=== PATIENT | female | born 1955 | race African-American/Black ===

== ENCOUNTER 2018-03-22 15:06 | Outpatient (CLI) | payer BC | END 2018-03-22 15:07 | disposition home or self-care (01) | LOC: BICMAMMO 15:06 | PROVIDERS: ATTEND Internal Medicine Geriatric Medicine | DX: Z12.31 Encounter for screening mammogram for malignant neoplasm of breast (principal); R92.1 Mammographic calcification found on diagnostic imaging of breast | CPT/HCPCS: 77063; 77067 ==

== ENCOUNTER 2018-05-09 07:28 | Outpatient (CLI) | payer BC ==
[2018-05-09] MEDS ORDERED: Iopamidol 370 76% 100 ML VIAL ONE (09:00)
--- NOTE | 2018-05-09 12:52 | CT ---
CONTRAST ENHANCED CT OF THE SOFT TISSUE NECK: History: 62-year-old with history of swollen parotid region involving the left parotid gland. Technique: Contrast enhanced CT of the soft tissue neck performed. FINDINGS: Images demonstrate the thyroid gland to be unremarkable. No significant evidence of lymphadenopathy s een. The common and internal carotid artery is unremarkable. No definite evidence of pharyngeal mucosal masses or lesions seen. The right and left submandibular glands and parotid glands are unremarkable with no definite evidence of masses or lesions. The paranasal sinuses are well aerated in the visualized portions. IMPRESSION: Unremarkable contrast enhanced images of the soft tissue neck. POS: C
== END 2018-05-09 07:29 | disposition home or self-care (01) ==
LOC: SCSCT 07:28
PROVIDERS: ATTEND Internal Medicine Geriatric Medicine
DX: K11.8 Other diseases of salivary glands (principal)
CPT/HCPCS: 70491; 82565

== ENCOUNTER 2019-03-22 08:32 | Outpatient (CLI) | payer BC ==
--- NOTE | 2019-03-22 09:49 | MRI ---
MRI LEFT KNEE WITHOUT CONTRAST: HISTORY: Knee pain. M23.92, internal derangement. COMPARISON: None. FINDINGS: Medial meniscus: Intact. Lateral meniscus: Intact. ACL, PCL, MCL, and LCL: Intact. Extensor mechanism: Quadriceps tendon, patella, and patella tendon are intact. CARTILAGE: Patellofemoral compartment: Multifocal full-thickness cartilage fissuring of the patellar apex, supe rior pole, as well as medial patellar facet, with subcortical reactive marrow changes. There is also high-grade chondral loss of the medial patellar facet. Medial compartment: Intact. Lateral compartment: There are a few high-grade cartilage fissures and chondral delamination along t he posterior flexion zone and the posterior weightbearing surface of the lateral femoral condyle. Th ere is mild intrameniscal degeneration of the lateral meniscal body. Muscles: Muscle signal and bulk are normal. Soft tissue: Normal joint fluid. Small popliteus bursa effusion. IMPRESSION: 1. 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 2. No evidence of acute internal derangement. 3. Mild free edge fraying and intrameniscal degeneration of the lateral meniscal body. No gutter ex trusion or significant loss of . 4. Multifocal grade 2 and early grade 3 chondromalacia of the posterior weightbearing surface of the lateral femoral condyle and posterior flexion zone. POS: CET
== END 2019-03-22 08:33 | disposition home or self-care (01) ==
LOC: TBSIIMAG 08:32
PROVIDERS: ATTEND Orthopaedic Surgery
DX: M23.301 Other meniscus derangements, unspecified lateral meniscus, left knee (principal); M94.262 Chondromalacia, left knee

== ENCOUNTER 2019-09-20 12:43 | Outpatient (CLI) | payer BC ==
--- NOTE | 2019-09-20 13:49 | MRI ---
MR OF THE RIGHT KNEE WITHOUT CONTRAST INDICATION: Internal derangement of the right knee; twisting injury to the right knee 2 days ago with medial right knee pain TECHNIQUE: Axial and coronal PD fat sat, sagittal T2 fat sat, sagittal PD turbo spin echo and T1 lorenzo nal images were obtained of the right knee. COMPARISON: None. FINDINGS: Joint effusion: None. Semimembranosus-medial gastrocnemius popliteal cyst: Tiny Ligaments: The ACL, PCL, MCL and LCLC are intact. Extensor mechanism: There is mild increased T2 signal intensity surrounding the mid to inferior mendiola lar tendon suspicious for mild patellar tendinosis mild edema seen within the anterior inferior aspect of Hoffa's fat pad. Menisci: Intact. Articular cartilage: There is diffuse moderate chondrosis involving the patella. No full-thickness ar ticular cartilage defect is evident. Osseous structures: Normal marrow signal. Popliteus and IT band: Normal. IMPRESSION: 1. Mild patellar tendinitis. 2. Moderate chondrosis of the patella articular cartilage. 3. The menisci are intact. 4. The ACL, PCL, MCL and LCLC are intact.
== END 2019-09-20 12:44 | disposition home or self-care (01) ==
LOC: BICMRI 12:43
PROVIDERS: ATTEND Orthopaedic Surgery
DX: M23.91 Unspecified internal derangement of right knee (principal); M76.51 Patellar tendinitis, right knee; M22.41 Chondromalacia patellae, right knee

== ENCOUNTER 2020-03-11 06:38 | Outpatient (CLI) | payer BC, OTHER ==
[2020-03-12 18:05] LABS: SARS-CoV-2 MS2 Positive; SARS-CoV-2 N Gene Negative; SARS-CoV-2 S Gene Negative; SARS-CoV-2 orf1ab Negative
== END 2020-03-11 06:39 | disposition home or self-care (01) ==
LOC: LABBT 06:38
PROVIDERS: ATTEND Orthopaedic Surgery
DX: Z01.818 Encounter for other preprocedural examination (principal); Z11.59 Encounter for screening for other viral diseases; G56.01 Carpal tunnel syndrome, right upper limb
CPT/HCPCS: 87635; U0003

== ENCOUNTER 2020-03-13 05:43 | Day surgery (SDC) | payer BC ==
[2020-03-10 10:52] VITALS: BMI 19.6
--- NOTE | 2020-03-11 13:36 | HP ---
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 She has tingling, which is worse with activities and also awakens her at night. She has had partial relief from cortisone injections and splinting, but has had persistent symptoms. PAST MEDICAL HISTORY: The patient is otherwise in good health. Has no major medical problems and no known allergies. FAMILY HISTORY: Otherwise unremarkable. SOCIAL HISTORY: Otherwise unremarkable. REVIEW OF SYSTEMS: Otherwise unremarkable. PHYSICAL EXAMINATION: GENERAL: This is a healthy female. HEENT: Unremarkable. NECK: Supple. CHEST: Clear. HEART: Regular rate and rhythm. ABDOMEN: Soft and nontender. PELVIC: Deferred. RECTAL: Deferred. BREASTS: Deferred. EXTREMITIES: Pertinent findings related to right wrist, there is no swelling. There is tenderness over the median nerve. There is full range of motion. Motor exam is intact. There is some slight subjective numbness in median nerve distribution. Negative Tinel sign. Negative Phalen test. Electrodiagnostic studies were positive for carpal tunnel syndrome. IMPRESSION: Right carpal tunnel syndrome. PLAN: Endoscopic possible open right carpal tunnel release. The nature of the surgery, length of recovery, and potential complications such as infection, loss of motion, incomplete relief, nerve injury, recurrence, and need for additional treatment or repeat surgery were discussed in detail. Job ID: [id number]
[2020-03-13] MEDS ORDERED: Bupivacaine PF 0.5% 30 ML VIAL ONE (06:28)
[2020-03-13] MEDS ORDERED: Lidocaine 1% (PF) 30 ML VIAL ONE (06:28)
[2020-03-13] MEDS ORDERED: Propofol 500 MG/50 ML VIAL ONE (06:41)
[2020-03-13] MEDS ORDERED: Midazolam HCl 2 mg/2 ml Vial ONE ×2 (06:41→07:03)
[2020-03-13] MEDS ORDERED: Fentanyl 100 MCG/2 ML VIAL ONE (06:41)
[2020-03-13] MEDS ORDERED: Ondansetron PF 4 MG/2 ML Vial ONE (08:28)
[2020-03-13] MEDS ORDERED: Ketorolac Tromethamine 30 MG/ML VIAL ONE (08:28)
[2020-03-13] MEDS ORDERED: HYDROcodone/Acetaminophen 5/325 mg Tablet ONE (09:00)
--- NOTE | 2020-03-13 10:59 | OP ---
DATE OF PROCEDURE: 03/13/2020 ANESTHESIA: Local plus TIVA. PREOPERATIVE DIAGNOSIS: Right carpal tunnel syndrome. POSTOPERATIVE DIAGNOSIS: Right carpal tunnel syndrome. PROCEDURE PERFORMED: Right endoscopic carpal tunnel release. DESCRIPTION OF PROCEDURE: After satisfactory general anesthesia was induced in supine position, the patient was prepped and draped in routine manner. A field block with 1% lidocaine plain 7 mL was performed. The right arm was elevated and exsanguinated with an Esmarch bandage and the tourniquet inflated to 250 mmHg. A 2 cm transverse incision was made in the proximal wrist flexion crease, carried down through subcutaneous tissues. Bleeding points were controlled with Bovie cautery. Using sharp and blunt dissection, a distally based flap at the deep forearm fascia was developed and retracted distally. Palmaris longus tendon was retracted radially. Proximal edge of the deep forearm fascia was split under direct visualization with small scissors to make sure there was no proximal impingement of the median nerve. Synovial elevator was then introduced beneath the transverse carpal ligament and the synovium cleaned from the under surface. Carpal tunnel dilators were inserted. The [employer] endoscopic carpal tunnel system was introduced beneath the transverse carpal ligament inline with the ring finger. The distal edge of the ligament was easily identified and then divided in a distal to proximal direction by pulling the trigger of the assembly and withdrawing the scope proximally. This was done in several stages to make sure there was complete division of the transverse carpal ligament. This was documented with the video printer. The carpal tunnel dilator was then inserted into the carpal tunnel and there was markedly improved passage and subcutaneous position of the instrument. The scope was reintroduced into the carpal tunnel. There was wide separation of the 2 leaves of the transverse carpal ligament. The tourniquet was released after 4 minutes. There was no excessive bleeding and the scope was withdrawn. The wound was thoroughly irrigated and closed with a running subcuticular 3-0 nylon. A sterile dressing was applied. The patient immobilized in a Velcro wrist splint and taken from the operating room in stable condition. There were no apparent intraoperative complications. The estimated blood loss was negligible. The patient will be discharged home in satisfactory condition, instructed on ice and elevation, given written wound care instructions. She has [place] 5 at home for pain. She will be rechecked in my office in 10 to 14 days or sooner if there are any problems prior to that time. Job ID: [id number]
[2020-03-13] MEDS ORDERED: EPHEDRINE 25 MG/5 ML SYRINGE ONE (11:55)
[2020-03-13] MEDS ORDERED: PROPOFOL 200 MG/20 ML VIAL ONE (11:55)
--- NOTE | 2020-03-13 14:01 | EKG ---
Test Reason : PREOP Blood Pressure : / mmHG Vent. Rate : 044 BPM Atrial Rate : 044 BPM P-R Int : 174 ms QRS Dur : 080 ms QT Int : 494 ms P-R-T Axes : 001 055 035 degrees QTc Int : 422 ms Marked sinus bradycardia ST elevation, consider early repolarization Abnormal ECG No previous ECGs available Confirmed by JANELLE ZHU ([id number]) on 03/13/2020 2:01:13 PM Referred By: ABRAHAM Confirmed By:JANELLE ZHU
== END 2020-03-13 09:00 | disposition home or self-care (01) ==
LOC: SDC 05:43
PROVIDERS: ATTEND Orthopaedic Surgery
PROC: 01N54ZZ Release Median Nerve, Percutaneous Endoscopic Approach (ICD-10-PCS; principal; 2020-03-13)
DX: G56.03 Carpal tunnel syndrome, bilateral upper limbs (principal); G35 Multiple sclerosis
CPT/HCPCS: 93005; 93010; J0690; J1885; J2001; J2250; J2405; J2704; J3010; S0020

== ENCOUNTER 2021-06-30 09:34 | Outpatient (CLI) | payer BC | END 2021-06-30 09:35 | disposition home or self-care (01) | LOC: MRI 09:34 | PROVIDERS: ATTEND Orthopaedic Surgery | DX: M25.562 Pain in left knee (principal); S83.282A Other tear of lateral meniscus, current injury, left knee, initial encounter; M23.92 Unspecified internal derangement of left knee; M25.462 Effusion, left knee; M71.22 Synovial cyst of popliteal space [Baker], left knee ==

== ENCOUNTER 2022-09-13 14:25 | Outpatient (CLI) | payer BC | END 2022-09-13 14:26 | disposition home or self-care (01) | LOC: TBSIIMAG 14:25 | PROVIDERS: ATTEND Orthopaedic Surgery | DX: S83.242A Other tear of medial meniscus, current injury, left knee, initial encounter (principal); Z98.890 Other specified postprocedural states ==